=== PATIENT | female | born 1955 | race Caucasian/White ===

== ENCOUNTER 2017-12-22 14:33 | Inpatient (IN) | payer BC, OTHER ==
[~2017-12-22] VITALS: Ht 175.3 cm; Wt 99.8 kg
--- NOTE | ~2017-12-22 | EKG ---
[place] [address] [facility] [place] [address] ELECTROCARDIOGRAM REPORT Name: DIONTE MURILLO Room #: 408-P ADM IN M.R.#: [id number] Admission: 12/22/17 Attend Phys: Serafin Farooq Discharge: Date of : 55 Report #: [id number] THIS REPORT FOR: //name// 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
[2017-12-22 14:43] VITALS: BP 151/90
[2017-12-22] MEDS ORDERED: SERTRALINE HCL25 MG PO (14:58)
[2017-12-22] MEDS ORDERED: NICOTINE TRANSD21 M1 (14:59)
[2017-12-22] MEDS ORDERED: HYDROCHLOROTHIA25 M2 PO (14:59)
[2017-12-22] MEDS ORDERED: WELLBUTRIN SR150 MG PO (14:59)
[2017-12-22] MEDS ORDERED: NEURONTIN 400400 M1 PO (15:00)
[2017-12-22] MEDS ORDERED: METFORMIN HCL500 MG PO (15:00)
[2017-12-22] MEDS ORDERED: STOOL SOFTENER100 M1 PO (15:01)
[2017-12-22] MEDS ORDERED: IBUPROFEN 200200 M1 PO (15:01)
[2017-12-22] MEDS ORDERED: PROTONIX40 M2 PO (15:01)
[2017-12-22] MEDS ORDERED: FISH OIL 1,2001 EAC4 PO (15:02)
[2017-12-22] MEDS ORDERED: CENTRUM SILVER1 EAC6 PO (15:02)
[2017-12-22] MEDS ORDERED: ZINC50 M1 PO (15:02)
[2017-12-22] MEDS ORDERED: VITAMINC500 PO (15:03)
[2017-12-22] MEDS ORDERED: CALCIUM 600 +1 EAC1 PO (15:03)
[2017-12-22] MEDS ORDERED: VITAMIN D35000 UNIT PO (15:03)
[2017-12-22] MEDS ORDERED: PHILLIPS' COLO1 EACH PO (15:03)
[2017-12-22] MEDS ORDERED: MELATONIN5 M1 PO (15:04)
[2017-12-22] MEDS ORDERED: METAMUCIL1 EAC1 PO (15:04)
[2017-12-22 17:16] LABS: ABSOLUTE NEUTROPHILS 3.5 thou/uL (1.4-8.2); BASOPHILS 0.7 % (0.0-2.0); EOSINOPHILS 1.1 % (0.0-3.0); HEMATOCRIT 34.6 % (37.0-47.0); HEMOGLOBIN 11.9 gm/dL (12.0-15.0); LYMPHOCYTES 37.5 % (24.0-44.0); MCH 30.2 pg (26.0-34.0); MCHC 34.4 g/dL (28.0-37.0); MCV 87.8 fL (80.0-100.0); MONOCYTES 8.2 % (1.0-8.0); PLATELET COUNT 270 thou/uL (150-400); POLYS 52.5 % (36.0-66.0); RBC 3.94 mil/uL (4.20-5.00); RDW 13.4 % (10.5-14.5); WBC 6.7 thou/uL (4.0-11.0)
[2017-12-22 17:20] LABS: CALCIUM 9.5 mg/dL (8.5-10.1); CREATININE 1.1 mg/dL (0.6-1.0); POTASSIUM 4.1 mmol/L (3.5-5.1)
[2017-12-22 17:23] VITALS: BP 130/88
[2017-12-22 18:05] VITALS: BP 149/91
[2017-12-22 18:12] VITALS: BP 153/88
[2017-12-22 20:09] VITALS: BP 152/91
[2017-12-23 00:19] VITALS: BP 115/67
[2017-12-23 04:49] VITALS: BP 106/61
[2017-12-23 05:35] LABS: PROTIME 10.3 Seconds (9.3-11.4)
[2017-12-23 08:42] VITALS: BP 118/72
[2017-12-23 15:28] VITALS: BP 137/61
[2017-12-23 20:00] VITALS: BP 189/84
[2017-12-23 22:06] LABS: GLYCOHEMOGLOBIN (HGB A1C) 5.9 % (4.8-5.6)
[2017-12-24 04:00] VITALS: BP 135/88
[2017-12-24 16:00] VITALS: BP 148/95
[2017-12-24 20:31] VITALS: BP 110/65
[2017-12-25 00:49] VITALS: BP 114/70
[2017-12-25 04:49] VITALS: BP 125/77
[2017-12-25 07:41] VITALS: BP 138/81
[2017-12-25 16:21] VITALS: BP 147/78
[2017-12-25 20:00] VITALS: BP 152/82
[2017-12-26 04:00] VITALS: BP 142/69
[2017-12-26 07:25] VITALS: BP 134/75
[2017-12-26] MEDS ORDERED: HYDROCODON-ACE1 EAC7 PO (11:02)
[2017-12-26] MEDS ORDERED: NOVOLOG100 UNIT/1 SUBQ (11:03)
== END 2017-12-26 16:00 | DRG 497 ==
LOC: ER 14:33 → 4N 17:20 → EROBS 17:20 → 4N 18:05
PROVIDERS: Emergency Medicine; Hospitalist; Nurse Practitioner Acute Care
PROC: 2W3QX1Z Immobilization of Right Lower Leg using Splint (ICD-10-PCS; principal; 2017-12-22)
PROC: 0QWJ04Z Revision of Internal Fixation Device in Right Fibula, Open Approach (ICD-10-PCS; 2017-12-24)
DX: S82.851A Displaced trimalleolar fracture of right lower leg, initial encounter for closed fracture (principal); I10 Essential (primary) hypertension; E11.9 Type 2 diabetes mellitus without complications; F25.9 Schizoaffective disorder, unspecified; S93.04XA Dislocation of right ankle joint, initial encounter; X58.XXXA Exposure to other specified factors, initial encounter; Y93.89 Activity, other specified; Y92.89 Other specified places as the place of occurrence of the external cause; Y99.8 Other external cause status; Z80.0 Family history of malignant neoplasm of digestive organs; Z80.1 Family history of malignant neoplasm of trachea, bronchus and lung; Z79.899 Other long term (current) drug therapy
CPT/HCPCS: 10790; 50010; 50101; 50386; 52120; 55430; 56524; 56525; 56526; 56527; 57091; 62110; 62900; 70005

== ENCOUNTER 2018-01-26 05:28 | Observation (INO) | payer BC, OTHER ==
[~2018-01-26] VITALS: Ht 175.3 cm; Wt 77.6 kg
--- NOTE | ~2018-01-26 | H ---
[facility] [place] [address] HISTORY AND PHYSICAL Name: DIONTE MURILLO Room #: 464-P [facility] Lion#: [id number] Admission: 01/26/18 Attend Phys: Mike Husain MD Discharge: Date of : 55 Report #: [id number] THIS REPORT FOR: //name// CC: Rodney Brown Physician staff YIMI BRISENO DATE OF SERVICE: 01/26/2018 CHIEF COMPLAINT: Right ankle fracture, difficulty with self care. HISTORY OF PRESENT ILLNESS: The patient is a 62-year-old female with a history of hypertension, diabetes, schizoaffective disorder, possible bipolar disorder, history of ankle fracture in 11/2017, status post open reduction and internal fixation of the right ankle fracture dislocation on 12/01, was admitted on 12/22 for posterior ankle dislocation. The patient underwent revision open reduction and internal fixation of the right trimalleolar ankle fracture with application of delta external fixator on 12/24/2017. The patient was then postoperatively discharged to group home unit on 12/26/2017. The patient was brought into the OR today for removal of the external fixator. Ankle x-ray done today showed stable appearing hardware involving the distal fibula and tibia. I do not see any postop note dictated yet. Apparently, the patient needs another surgery in a couple of weeks. The patient was initially scheduled to go back to the group home unit after surgery this morning. Apparently, her signed her off and discharged her out of the group home unit, and the patient is unable to go back to the group home unit. The patient is admitted as observation for evaluation by case management. The patient is seen postoperatively in the recovery room. The patient denies any complaint. Pain is fairly well controlled. PAST MEDICAL HISTORY: Significant for ankle fracture on 12/01, status post surgery, followed by right ankle dislocation in end of November. History of diabetes, prediabetic, on metformin. History of hypertension. History of bipolar disorder, schizoaffective disorder. No history of any peptic ulcer disease or bleeding disorder. No coronary artery disease. ALLERGIES: No known drug allergy. HOME MEDICATIONS: Reviewed. Please look at the nursing documentation. FAMILY HISTORY: Significant for cancer. SOCIAL HISTORY: No smoking, alcohol abuse or illicit drug abuse. REVIEW OF SYSTEMS: CONSTITUTIONAL: No fever or chills. [facility] [address] [place] [address] HISTORY AND PHYSICAL Name: DIONTE MURILLO Room #: 464-P [facility] Ernestina Seymour#: [id number] Admission: 01/26/18 Attend Phys: Mike Husain MD Discharge: Date of : 55 Report #: [id number] EYES: No change in vision. THROAT: Denies any sore throat. CARDIOVASCULAR: No chest pain, dizziness, palpitation. RESPIRATORY: No cough or expectoration. GASTROINTESTINAL: No nausea or vomiting. GENITOURINARY: No dysuria, hematuria. NEUROLOGIC: Denies any focal numbness or weakness of the extremity. PSYCHIATRIC: Denies any anxiety or depression at present. The 12-point review of system is negative other than the positive and negative dictated in history of present illness and the review of system. PHYSICAL EXAMINATION: VITAL SIGNS: Reviewed. Blood pressure is 146/99, heart rate of 70 per minute, afebrile. GENERAL: The patient is awake and alert, not in acute respiratory distress. EYES: Pupils equal, reactive to light, nonicteric conjunctivae. NECK: Supple, no JVD, no bruit, no lymphadenopathy. CARDIOVASCULAR SYSTEM: S1, S2, negative S3, no murmur. CHEST: Bilateral air entry present. Clear to auscultation. ABDOMEN: Soft, bowel sounds present, no mass, no organomegaly, no tenderness. PERIPHERY: No pedal edema on the left leg. Right leg is in a cast. The patient has sensation in the right toes. LABORATORY DATA: Pending. IMAGIN. Right ankle fracture, status post revision open reduction and internal fixation with application of a delta external fixator around 12/24/2017. 2. Status post removal of the deltoid external fixator on 01/26/2018. 3. Postoperative course as per Orthopedic Surgery. 4. Deep venous thrombosis prophylaxis. The patient will be started on Lovenox for deep venous thrombosis prophylaxis. 5. Diabetes. Continue with metformin. We will place her on Accu-Cheks. 6. Hypertension. Continue to monitor. 7. Bipolar disorder/schizoaffective disorder. Continue current home medication. 8. Discharge planning. Case Management has been consulted. Treatment plan has been explained to the patient in detail. <ELECTRONICALLY SIGNED> By: Bishop Byers MD 01/26/18 1318 1100 1142 Bishop Byers MD /nt
[~2018-01-26 05:28] MED LIST: ASPIRIN325 PO; CALCIUM 600 +1 EAC1 PO; CENTRUM SILVER1 EAC6 PO; CIPRO250 M1 PO; FISH OIL 1,2001 EAC4 PO; GLUCOPHAGE1000 MG PO; HYDROCHLOROTHIA25 M2 PO; HYDROCODON-ACE1 EAC7 PO; IBUPROFEN 200200 M1 PO; MELATONIN5 M1 PO; METAMUCIL1 EAC1 PO; METFORMIN HCL500 MG PO; NEURONTIN 400400 M1 PO; NICOTINE TRANSD21 M1; NOVOLOG100 UNIT/1 SUBQ; PHILLIPS' COLO1 EACH PO; PROBIOTIC1 EAC1 PO; PROTONIX40 M2 PO; SERTRALINE HCL25 MG PO; STOOL SOFTENER100 M1 PO; VITAMIN D35000 UNIT PO; VITAMINC500 PO; WELLBUTRIN SR150 MG PO; ZINC50 M1 PO
[2018-01-26 07:05] VITALS: BP 146/99
[2018-01-26 09:03] VITALS: BP 146/99
[2018-01-26 13:22] VITALS: BP 133/70
[2018-01-26 15:01] VITALS: BP 146/99
[2018-01-26 15:42] VITALS: BP 152/99
[2018-01-26 16:00] LABS: ABSOLUTE NEUTROPHILS 5.3 thou/uL (1.4-8.2); BASOPHILS 1.5 % (0.0-2.0); HEMATOCRIT 33.7 % (37.0-47.0); HEMOGLOBIN 11.6 gm/dL (12.0-15.0); LYMPHOCYTES 16.6 % (24.0-44.0); MCH 28.8 pg (26.0-34.0); MCHC 34.5 g/dL (28.0-37.0); MCV 83.6 fL (80.0-100.0); MONOCYTES 2.1 % (1.0-8.0); PLATELET COUNT 407 thou/uL (150-400); POLYS 79.8 % (36.0-66.0); RBC 4.03 mil/uL (4.20-5.00); WBC 6.6 thou/uL (4.0-11.0)
[2018-01-26 16:19] LABS: ALBUMIN 3.2 g/dL (3.4-5.0); CALCIUM 9.5 mg/dL (8.5-10.1); CREATININE 1.1 mg/dL (0.6-1.0); MAGNESIUM 1.8 mg/dL (1.8-2.4); POTASSIUM 4.3 mmol/L (3.5-5.1); TOTAL BILIRUBIN 0.1 mg/dL (<0.1-1.0); TOTAL PROTEIN 7.3 g/dL (6.4-8.2)
[2018-01-26 19:49] VITALS: BP 137/76
[2018-01-27 00:20] VITALS: BP 148/94
[2018-01-27 03:55] VITALS: BP 134/76
[2018-01-27 05:32] LABS: ABSOLUTE NEUTROPHILS 4.7 thou/uL (1.4-8.2); BASOPHILS 0.7 % (0.0-2.0); EOSINOPHILS 0.7 % (0.0-3.0); HEMATOCRIT 29.9 % (37.0-47.0); HEMOGLOBIN 10.7 gm/dL (12.0-15.0); LYMPHOCYTES 35.8 % (24.0-44.0); MCH 29.7 pg (26.0-34.0); MCHC 35.7 g/dL (28.0-37.0); MCV 83.2 fL (80.0-100.0); MONOCYTES 7.1 % (1.0-8.0); PLATELET COUNT 333 thou/uL (150-400); POLYS 55.7 % (36.0-66.0); RBC 3.59 mil/uL (4.20-5.00); RDW 13.6 % (10.5-14.5); WBC 8.5 thou/uL (4.0-11.0)
[2018-01-27 05:40] LABS: CALCIUM 9.5 mg/dL (8.5-10.1)
[2018-01-27 07:54] VITALS: BP 147/78
[2018-01-27] MEDS ORDERED: ENOXAPARIN40 MG/0.1 SUBQ (11:45)
[2018-01-27] MEDS ORDERED: DOXYCYCLINE HYC50 MG PO (11:45)
== END 2018-01-27 14:45 | disposition home or self-care (01) ==
LOC: OR 05:28 → TBA 05:28 → OR 07:36 → 4W 10:39 → OR 10:39 → 4W 01-27 14:45
PROVIDERS: Internal Medicine
DX: S93.04XD Dislocation of right ankle joint, subsequent encounter (principal); S82.851D Displaced trimalleolar fracture of right lower leg, subsequent encounter for closed fracture with routine healing; I10 Essential (primary) hypertension; E11.9 Type 2 diabetes mellitus without complications; F25.9 Schizoaffective disorder, unspecified; F31.9 Bipolar disorder, unspecified; M14.671 Charcot's joint, right ankle and foot; L03.115 Cellulitis of right lower limb; Z98.890 Other specified postprocedural states
CPT/HCPCS: 50010; 50101; 50386; 57091; 62110; 62900; 70005